=== PATIENT | female | born 1955 | race Caucasian/White ===

== ENCOUNTER 2016-11-24 12:58 | Outpatient (CLI) | payer BC | END 2016-11-24 21:07 | disposition home or self-care (01) | LOC: SMA 12:58 | DX: Z12.31 Encounter for screening mammogram for malignant neoplasm of breast (principal) | CPT/HCPCS: G0202 ==

== ENCOUNTER 2020-09-24 09:09 | Outpatient (CLI) | payer OTHER | END 2020-09-24 20:19 | disposition home or self-care (01) | LOC: SMA 09:09 | DX: Z12.31 Encounter for screening mammogram for malignant neoplasm of breast (principal); N63.20 Unspecified lump in the left breast, unspecified quadrant | CPT/HCPCS: 77067 ==